=== PATIENT | female | born 1960 | race African-American/Black ===

== ENCOUNTER → 2016-04-25 | Emergency (ER) | payer OTHER ==
[~2016-04-25] VITALS: Ht 157.5 cm; Wt 96.6 kg
[~2016-04-25] MED LIST: CYCLOBENZAPRINE10 MG ORAL; Cyclobenzaprine 10mg Tab ORAL ONE; IBUPROFEN600 MG ORAL; Ketorolac 30mg Inj IM ONE; Norco 5mg/325mg tab ORAL ONE
[2016-04-25 22:14] VITALS: BP 138/98
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
== END | disposition home or self-care (01) ==
LOC: EMR 22:36
DX: T14.8 Other injury of unspecified body region (principal); Z88.0 Allergy status to penicillin; J45.909 Unspecified asthma, uncomplicated; V47.5XXA Car driver injured in collision with fixed or stationary object in traffic accident, initial encounter; Y92.410 Unspecified street and highway as the place of occurrence of the external cause; Y99.8 Other external cause status
CPT/HCPCS: 96372; 99284; J1885

== ENCOUNTER 2017-02-07 20:07 | Emergency (ER) | payer OTHER ==
[~2017-02-07] VITALS: Ht 154.9 cm; Wt 99.8 kg
[~2017-02-07 20:07] MED LIST changes: -Cyclobenzaprine 10mg Tab ORAL ONE; -Ketorolac 30mg Inj IM ONE; -Norco 5mg/325mg tab ORAL ONE
[2017-02-07 21:20] VITALS: BP 114/81
[2017-02-07] MEDS ORDERED: AZITHROMYCIN250 MG ORAL (21:32)
[2017-02-07] MEDS ORDERED: PREDNISONE20 MG ORAL (21:32)
--- NOTE | 2017-02-07 21:33 | Emergency Room Report ---
History of Present Illness General Chief Complaint: Flu Like Symptoms Source: Patient Present Illness [facility] This is a 56-year-old female with history of asthma. She presents complaining of cough for the last 3 weeks. Coughing is productive in nature. Subjective fever chills. No nausea no vomiting. No runny nose. Has not been on antibiotics. Using an inhaler more. Allergies: Coded Allergies: PENICILLINS (Verified Allergy, Unknown, 04/25/16) Patient History Past Medical History: see triage record, old chart reviewed, asthma Past Surgical History: none Pertinent Family History: none Social History: Denies: smoking Last Menstrual Period: NA Now: No Immunizations: other Reviewed Nursing Documentation: PMH: Agreed, PSxH: Agreed Nursing Documentation-PMH Hx Asthma: Yes Review of Systems Eye: Denies: eye pain, blurred vision ENT: Denies: ear pain, nose congestion, throat swelling Respiratory: Reports: cough, Denies: shortness of breath Cardiovascular: Denies: chest pain, palpitations Gastrointestinal: Denies: abdominal pain, diarrhea, nausea, vomiting Musculoskeletal: Denies: back pain, joint pain Skin: Denies: rash Neurological: Denies: headache, numbness Endocrine: Denies: increased thirst, increased urine Hematologic/Lymphatic: Denies: easy bruising All Other Systems: negative except mentioned in HPI Physical Exam Vital Signs Date Time Temp Pulse Resp B/P (MAP) Pulse Ox O2 Delivery O2 Flow Rate FiO2 02/07/17 21:08 98.6 110 20 114/81 96 Room Air vitals normal except for mild tachycardia Sp02 EP Interpretation: reviewed, normal General Appearance: well appearing, no apparent distress, alert Head: normocephalic, atraumatic Eyes: bilateral eye PERRL, bilateral eye EOMI ENT: hearing grossly normal, normal pharynx Neck: full range of motion, supple, no meningismus Respiratory: chest non-tender, lungs clear, normal breath sounds Cardiovascular #1: regular rate, rhythm, no murmur Gastrointestinal: normal bowel sounds, non tender, no mass, no organomegaly, no bruit, non-distended Musculoskeletal: back normal, gait/station normal, normal range of motion Psychiatric: mood/affect normal Skin: warm/dry Medical Decision Making Diagnostic Impression: Primary Impression: Atypical pneumonia Additional Impression: Asthma Qualified Codes: J45.901 - Unspecified asthma with (acute) exacerbation ER Course Patient presents with cough for 3 weeks. Most likely viral in nature but now concerning for secondary atypical pneumonia. Will going on antibiotics. We'll discharge home. No evidence of sepsis, rest or distress, PE or ACS to name a few. Last Vital Signs Date Time Temp Pulse Resp B/P (MAP) Pulse Ox O2 Delivery O2 Flow Rate FiO2 02/07/17 21:13 110 20 Room Air 02/07/17 21:08 98.6 114/81 96 Status: unchanged Disposition: HOME, SELF-CARE Condition: Stable Scripts Azithromycin* (ZITHROMAX*) 250 Mg Tablet 250 MG ORAL DAILY, #6 TAB 0 Refills Take two tablets by mouth today, then take one tablet by mouth daily for four days Prov: GIOVANNI NICHOLSON M.D. 02/07/17 Prednisone* (PREDNISONE*) 20 Mg Tablet 60 MG ORAL DAILY, #15 TAB Prov: GIOVANNI NICHOLSON M.D. 02/07/17 Additional Instructions: Followup with your Dr. in 7 days. Return if symptom worsen. GIOVANNI NICHOLSON M.D. Feb 07, 2017 21:32
[2017-02-07 22:00] VITALS: BP 114/81
== END 2017-02-07 22:00 | disposition home or self-care (01) ==
LOC: EMR 21:28
DX: J18.9 Pneumonia, unspecified organism (principal); J45.909 Unspecified asthma, uncomplicated
CPT/HCPCS: 99283

== ENCOUNTER 2017-02-12 19:49 | Emergency (ER) | payer OTHER ==
[~2017-02-12] VITALS: Ht 157.5 cm; Wt 99.8 kg
[~2017-02-12 19:49] MED LIST changes: +AZITHROMYCIN250 MG ORAL; +PREDNISONE20 MG ORAL
[2017-02-12] MEDS ORDERED: VENTOLIN HFA18 GM INH ×2 (20:02→20:29)
[2017-02-12] MEDS ORDERED: DULERA 200 MCG/13 GM IH (20:02)
[2017-02-12 20:04] VITALS: BP 117/68
[2017-02-12] MEDS ORDERED: ACETAMINOPHEN-1 EAC1 ORAL (20:29)
[2017-02-12] MEDS ORDERED: Albuterol ud Inhalation HHN ONE (20:30)
--- NOTE | 2017-02-12 20:38 | Emergency Room Report ---
History of Present Illness General Chief Complaint: Asthma Source: Patient Present Illness HPI [id number] with continued cough, pleuritic chest pain from cough, despite recent completing tx with z-pack and prednisone on 02/07 History of asthma Denies fever chills Denies nausea vomiting or abdominal pain Denies intubation or BiPAP for asthma exacerbation in the past Allergies: Coded Allergies: PENICILLINS (Verified Allergy, Unknown, 02/12/17) Patient History Past Medical History: asthma Past Surgical History: none Pertinent Family History: none Social History: Denies: smoking, alcohol use, drug use Last Menstrual Period: n/a Now: No Immunizations: UTD Reviewed Nursing Documentation: PMH: Agreed, PSxH: Agreed Nursing Documentation-PMH Hx Asthma: Yes Review of Systems All Other Systems: negative except mentioned in HPI Physical Exam Vital Signs Date Time Temp Pulse Resp B/P (MAP) Pulse Ox O2 Delivery O2 Flow Rate FiO2 02/12/17 19:54 99.1 104 16 117/68 93 Room Air Sp02 EP Interpretation: reviewed, normal General Appearance: normal inspection, well appearing, no apparent distress, alert, GCS 15, non-toxic Head: normocephalic, atraumatic Eyes: bilateral eye PERRL, bilateral eye EOMI ENT: normal ENT inspection, hearing grossly normal, normal pharynx, no angioedema, normal voice, TMs + canals normal, uvula midline, moist mucus membranes Neck: normal inspection, full range of motion, supple, thyroid normal, no meningismus, no bony tend Respiratory: normal inspection, lungs clear, normal breath sounds, no rhonchi, no respiratory distress, no retraction, no accessory muscle use, no wheezing, speaking full sentences Cardiovascular #1: regular rate, rhythm, no edema, no JVD, normal capillary refill Gastrointestinal: normal inspection, normal bowel sounds, non tender, soft, no mass, no peritonitis, non-distended, no guarding, no hernia, no pulsatile mass Genitourinary: no CVA tenderness Musculoskeletal: normal inspection, back normal, normal range of motion, no calf tenderness, pelvis stable, Meagan's Sign negative Neurologic: normal inspection, alert, oriented x3, responsive, oyster culler III-XII nml as tested, motor strength/tone normal, cerebellar normal, normal gait, speech normal Psychiatric: normal inspection, judgement/insight normal, mood/affect normal, no suicidal/homicidal ideation, no delusions Skin: normal inspection, normal color, no rash Lymphatic: normal inspection, no adenopathy Medical Decision Making Diagnostic Impression: Primary Impression: Bronchitis ER Course 56-year-old male likely with subacute bronchitis No improvement with Z-Eduin Lungs clear to auscultation here, afebrile, unlikely pneumonia Nonseptic appearing Patient not in asthma exacerbation, no wheezing on exam Is given albuterol nebulizer for her subacute bronchitis Refill for her Ventolin given Tylenol with codeine given for symptomatic relief a pleuritic pain from cough yo M F with DDX: Plan: Obtain labs, ua, ucx, ucg, CXR, EKG ER course: Patient has remained stable during ED stay. Disposition: Patient is to be discharged to home. Prescriptions given are T#3, ventolin Patient is instructed to follow up with their primary care doctor within 5 days. Strict return precautions discussed with patient such as fever, chills, worsening/severe pain, nausea, vomiting, which may indicate severe illness. Patient verbalizes understanding and agrees with plan. Please note that this Emergency Department Report was dictated using [employer] record[employer] technology software, occasionally this can lead to erroneous entry secondary to interpretation by the dictation equipment Last Vital Signs Date Time Temp Pulse Resp B/P (MAP) Pulse Ox O2 Delivery O2 Flow Rate FiO2 02/12/17 20:04 99.1 102 16 117/68 93 Room Air Status: improved Disposition: HOME, SELF-CARE Condition: Improved Scripts Acetaminophen With Codeine (T#3) (TYLENOL #3 TAB*) Y Tab 1 TAB ORAL Q8H Y for For Cough for 7 Days, #20 TAB Prov: YASIR ZEPEDA M.D. 02/12/17 Albuterol Sulfate (VENTOLIN HFA) 18 Gm Hfa.aer.ad 1 PUFF INH EVERY 6 HOURS for For Cough, #18 GM 0 Refills Prov: YASIR ZEPEDA M.D. 02/12/17 Patient Instructions: Acute Bronchitis, [id number] Additional Instructions: - Bronchitis cough could last 6-8 weeks - Use ventolin as needed for cough, SOB - Take T#3 as needed for pain from coughing - Followup with primary care doctor in 2-3 days YASIR ZEPEDA M.D. Feb 12, 2017 20:38
[2017-02-12 21:17] VITALS: BP 119/85
--- NOTE | 2017-02-13 09:30 | Diagnostic Imaging Report ---
Indication: Dyspnea Technique: XRAY Chest 1v Comparison: 10/30/2005 Findings: Lung volumes are slightly low. Heart size and mediastinal contours are within normal limits given technique. There is slight haziness of the bilateral lower lungs this may be related to vascular crowding given low lung volumes. Developing pneumonia should be excluded clinically. No pleural effusion. No pneumothorax. No acute osseous abnormality seen. Impression: Slight haziness in the bilateral lower lungs thought to be related to vascular crowding given somewhat low lung volumes. Developing pneumonia should be excluded clinically.
== END 2017-02-12 21:17 | disposition home or self-care (01) ==
LOC: EMR 20:50
DX: J45.909 Unspecified asthma, uncomplicated (principal); Z88.0 Allergy status to penicillin
CPT/HCPCS: 71045; 94640; 99283